=== PATIENT | female | born 1935 | race Caucasian/White ===

== ENCOUNTER → 2018-09-11 | Outpatient (REF) | payer MEDICARE, OTHER ==
[2018-09-11 14:39] LABS: CREATININE, URINE 87.3 MG/DL; CREATININE,RANDOM URINE 87.3 MG/DL; MALB URINE SIEMENS 44.5 MG/L; MAU/CREAT RATIO 50.9 MCG/MG (0.0-30.0)
== END ==
LOC: M LAB REF 12:36
PROVIDERS: ATTEND Internal Medicine
DX: E11.9 Type 2 diabetes mellitus without complications (principal)

== ENCOUNTER 2022-03-30 21:11 | Inpatient (IN) | payer MEDICARE, OTHER ==
[~2022-03-30] VITALS: Ht 157.5 cm; Wt 75.6 kg
[2022-03-30] MEDS ORDERED: SPIR-10 PO (21:28)
[2022-03-30] MEDS ORDERED: FOSI40TA59 PO (21:28)
[2022-03-30] MEDS ORDERED: HUMA100I3 SC (21:28)
[2022-03-30] MEDS ORDERED: ATEN100T PO (21:28)
[2022-03-30] MEDS ORDERED: INSU100I48 SC ×2 (21:28)
[2022-03-30] MEDS ORDERED: LIPI20TA PO (21:28)
[2022-03-30] MEDS ORDERED: ISOVUE-370 76% 100ML VIAL As Ordered ONE (22:28)
[2022-03-30 22:51] LABS: BASO # 0.1 10^3/uL (0.0-0.2); BASO % 0.8 % (0.0-1.0); EOS # 0.5 10^3/uL (0.0-0.5); EOS % 4.5 % (0.0-3.0); HEMATOCRIT 35.7 % (36.0-47.0); HEMOGLOBIN 11.5 g/dl (12.0-15.5); LYMPH # 3.2 10^3/uL (1.5-5.0); LYMPH % 27.7 % (24.0-44.0); MEAN CORPUSCULAR HEMOGLOBIN 28.9 pg (27.0-33.0); MEAN CORPUSCULAR HGB CONC 32.2 g/dl (32.0-36.5); MEAN CORPUSCULAR VOLUME 89.7 fl (80.0-96.0); MONO # 0.8 10^3/uL (0.0-0.8); MONO % 6.7 % (2.0-8.0); NEUTROPHILS % 59.9 % (36.0-66.0); PLATELET COUNT, AUTOMATED 311 10^3/uL (150-450); RED BLOOD COUNT 3.98 10^6/uL (4.00-5.40); WHITE BLOOD COUNT 11.7 10^3/uL (4.0-10.0)
[2022-03-30 23:09] LABS: RSV AMPLIFICATION NEGATIVE (NEGATIVE)
[2022-03-30 23:10] LABS: BLOOD UREA NITROGEN 17 MG/DL (9-23); CALCIUM LEVEL 8.8 MG/DL (8.3-10.6); CARBON DIOXIDE LEVEL 23 MMOL/L (20-31); CHLORIDE LEVEL 106 MMOL/L (98-107); CK-MB VALUE MASS < 1.0 NG/ML (<3.6); CREATININE FOR GFR 0.84 MG/DL (0.55-1.30); GLOMERULAR FILTRATION RATE > 60.0 (>32); GLUCOSE, FASTING 175 MG/DL (74-106); POTASSIUM SERUM 4.2 MMOL/L (3.5-5.1); SODIUM LEVEL 138 MMOL/L (136-145)
[2022-03-30 23:14] LABS: CPK CREATINE PHOSPHOKINASE 66 U/L (34-145); MB/CK RELATIVE INDEX 1.51 (< OR =4)
[2022-03-31] MEDS ORDERED: FOSI40TA59 PO (00:46)
[2022-03-31] MEDS ORDERED: ZINC50TA26 PO (00:46)
[2022-03-31] MEDS ORDERED: SPIR-10 PO (00:46)
[2022-03-31] MEDS ORDERED: BAYE325T13 PO (00:46)
[2022-03-31] MEDS ORDERED: ATEN50TA2 PO (00:46)
[2022-03-31] MEDS ORDERED: VITA200032 PO (00:46)
[2022-03-31] MEDS ORDERED: ATOR1TAB21 PO (00:46)
[2022-03-31] MEDS ORDERED: HOME MED LIST COMPLETE! XX SCH (00:50)
[2022-03-31] MEDS ORDERED: DEXTROSE 50% 50ML SYRINGE IV PRN (01:35)
[2022-03-31] MEDS ORDERED: GLUCOSE 4GM CHEW TABLET PO PRN (01:35)
[2022-03-31] MEDS ORDERED: GLUCAGON INJ 1MG VIAL SC PRN (01:35)
[2022-03-31] MEDS ORDERED: ACETAMINOPHEN TAB 650MG DOSE (2X325MG) PO PRN (01:35)
[2022-03-31] MEDS: CLOPIDOGREL 75 MG TAB PO SCH (02:58)
[2022-03-31 03:05] VITALS: BP 145/75
[2022-03-31] MEDS ORDERED: NS 1,000 ML IV SCH (03:10)
[2022-03-31 04:23] VITALS: BP 147/62
[2022-03-31 06:48] LABS: BASO # 0.1 10^3/uL (0.0-0.2); BASO % 0.9 % (0.0-1.0); EOS # 0.4 10^3/uL (0.0-0.5); EOS % 3.8 % (0.0-3.0); HEMATOCRIT 35.3 % (36.0-47.0); HEMOGLOBIN 11.3 g/dl (12.0-15.5); LYMPH # 3.1 10^3/uL (1.5-5.0); LYMPH % 27.5 % (24.0-44.0); MEAN CORPUSCULAR HEMOGLOBIN 28.7 pg (27.0-33.0); MEAN CORPUSCULAR VOLUME 89.6 fl (80.0-96.0); MONO # 0.7 10^3/uL (0.0-0.8); MONO % 6.5 % (2.0-8.0); NEUTROPHILS # 6.9 10^3/uL (1.5-8.5); NEUTROPHILS % 60.9 % (36.0-66.0); PLATELET COUNT, AUTOMATED 284 10^3/uL (150-450); RED BLOOD COUNT 3.94 10^6/uL (4.00-5.40); WHITE BLOOD COUNT 11.3 10^3/uL (4.0-10.0)
[2022-03-31 07:20] LABS: PERCENT SATURATION 22.7 % (13.2-45.0)
[2022-03-31 07:21] LABS: VITAMIN B12 LEVEL 247 PG/ML (211-911)
[2022-03-31 07:22] LABS: FERRITIN 120.7 NG/ML (7.3-270.7)
[2022-03-31 07:25] LABS: ALBUMIN 3.2 G/DL (3.2-5.2); ALKALINE PHOSPHATASE 80 U/L (46-116); ALT/SGPT 24 U/L (7.0-40); AST/SGOT 20 U/L (<34); BILIRUBIN,TOTAL 0.4 MG/DL (0.3-1.2); BLOOD UREA NITROGEN 14 MG/DL (9-23); CALCIUM LEVEL 8.8 MG/DL (8.3-10.6); CARBON DIOXIDE LEVEL 25 MMOL/L (20-31); CHLORIDE LEVEL 106 MMOL/L (98-107); CHOLESTEROL LEVEL 112 MG/DL (<200); CHOLESTEROL RISK RATIO 2.59 (<5); CREATININE FOR GFR 0.85 MG/DL (0.55-1.30); GLOMERULAR FILTRATION RATE > 60.0 (>32); GLUCOSE, FASTING 140 MG/DL (74-106); HDL CHOLESTEROL 43.1 MG/DL (>40); LDL CHOLESTEROL 53.3 MG/DL (<100); NON-HDL-C 69 MG/DL; POTASSIUM SERUM 3.8 MMOL/L (3.5-5.1); SODIUM LEVEL 140 MMOL/L (136-145); TOTAL PROTEIN 5.8 G/DL (5.7-8.2); TRIGLYCERIDES LEVEL 78 MG/DL (<150)
[2022-03-31 07:37] VITALS: BP 133/62
[2022-03-31] MEDS: INSULIN LISPRO (NovoLOG) PER UNIT SC SCH ×3 (08:41→17:37)
[2022-03-31] MEDS: FOSINOPRIL 10MG TABLET PO SCH (08:42)
[2022-03-31] MEDS: SPIRONOLACTONE 25 MG TAB PO SCH (08:42)
[2022-03-31] MEDS: LEVEMIR (INSULIN DETEMIR) 1 UNITS/0.01ML SC SCH (08:42)
[2022-03-31] MEDS: atenoloL 50 MG TAB PO SCH ×2 (08:43→21:21)
[2022-03-31] MEDS: ENOXAPARIN 40MG/0.4ML SYRINGE (J1650 PER 10MG) SC SCH (08:44)
[2022-03-31 08:56] LABS: HEMOGLOBIN A1c 6.4 % (4.0-6.0)
[2022-03-31 10:07] LABS: MAGNESIUM LEVEL 1.6 MG/DL (1.8-2.4)
[2022-03-31] MEDS: cefTRIAXone SOD 1 GM in D5W MINI-BAG PLUS 50 ML IV SCH (11:47)
[2022-03-31] MEDS ORDERED: MAG SULF 1GM/100ML (MAG RUN) 1 GM in IV 1 EA IV ONE (12:00)
[2022-03-31 15:56] VITALS: BP 126/60
[2022-03-31] MEDS ORDERED: INSULIN LISPRO (NovoLOG) PER UNIT SC SCH (21:00)
[2022-03-31] MEDS ORDERED: LEVEMIR (INSULIN DETEMIR) 1 UNITS/0.01ML SC SCH (21:00)
[2022-03-31] MEDS ORDERED: ATORVASTATIN 20 MG TAB PO SCH (21:00)
[2022-04-01 00:23] VITALS: BP 133/62
[2022-04-01 04:22] VITALS: BP 118/57
[2022-04-01] MEDS ORDERED: CEFD300C41 PO (07:27)
[2022-04-01] MEDS ORDERED: PROBCAP14 PO (07:27)
[2022-04-01] MEDS ORDERED: CLOP75TA2 PO (07:27)
[2022-04-01 07:42] VITALS: BP 130/56
[2022-04-01] MEDS: SPIRONOLACTONE 25 MG TAB PO SCH (08:49)
[2022-04-01] MEDS: CLOPIDOGREL 75 MG TAB PO SCH (08:49)
[2022-04-01 08:50] VITALS: BP 130/56
[2022-04-01] MEDS: ENOXAPARIN 40MG/0.4ML SYRINGE (J1650 PER 10MG) SC SCH (08:50)
[2022-04-01] MEDS: INSULIN LISPRO (NovoLOG) PER UNIT SC SCH ×2 (08:50→12:35)
[2022-04-01] MEDS: FOSINOPRIL 10MG TABLET PO SCH (08:50)
[2022-04-01] MEDS: LEVEMIR (INSULIN DETEMIR) 1 UNITS/0.01ML SC SCH (08:50)
[2022-04-01] MEDS: atenoloL 50 MG TAB PO SCH (08:50)
[2022-04-01] MEDS: cefTRIAXone SOD 1 GM in D5W MINI-BAG PLUS 50 ML IV SCH (11:00)
[2022-04-01] MEDS ORDERED: HUMA100I3 SC (13:20)
== END 2022-04-01 14:17 | disposition home or self-care (01) | DRG 67 ==
LOC: M ED 21:11 → M ED INP 03-31 01:31 → ENRESERV 03-31 01:48 → M PCU 03-31 03:15
PROVIDERS: ADMIT Family Medicine; ATTEND Family Medicine
PROC: B246ZZZ Ultrasonography of Right and Left Heart (ICD-10-PCS; principal; 2022-04-01)
DX: I65.21 Occlusion and stenosis of right carotid artery (principal); U07.1 COVID-19; N39.0 Urinary tract infection, site not specified; B96.20 Unspecified Escherichia coli [E. coli] as the cause of diseases classified elsewhere; I11.0 Hypertensive heart disease with heart failure; E78.5 Hyperlipidemia, unspecified; E11.9 Type 2 diabetes mellitus without complications; I50.9 Heart failure, unspecified; I44.7 Left bundle-branch block, unspecified; D64.9 Anemia, unspecified; Z79.82 Long term (current) use of aspirin; Z79.4 Long term (current) use of insulin; Z79.899 Other long term (current) drug therapy; Z90.49 Acquired absence of other specified parts of digestive tract; Z98.49 Cataract extraction status, unspecified eye; Z87.891 Personal history of nicotine dependence; E83.42 Hypomagnesemia; I25.10 Atherosclerotic heart disease of native coronary artery without angina pectoris

== ENCOUNTER → 2022-05-02 | Outpatient (CLI) | payer MEDICARE, OTHER ==
[~2022-05-02] MED LIST: ATEN100T PO; ATEN50TA2 PO; ATOR1TAB21 PO; BAYE325T13 PO; CEFD300C41 PO; CLOP75TA2 PO; FOSI40TA59 PO; HUMA100I3 SC; INSU100I48 SC; LIPI20TA PO; PROBCAP14 PO; SPIR-10 PO; VITA200032 PO; ZINC50TA26 PO
[2022-05-02 14:03] LABS: CREATININE FOR GFR 0.98 MG/DL (0.55-1.30); GLOMERULAR FILTRATION RATE 57.4 (>32)
== END ==
LOC: M WUC 10:27
PROVIDERS: ATTEND Physician Assistant
DX: I65.23 Occlusion and stenosis of bilateral carotid arteries (principal)

== ENCOUNTER → 2022-05-16 | Outpatient (CLI) | payer MEDICARE, OTHER ==
[~2022-05-16] MED LIST changes: +PROHANCE 279.3MG/ML 15ML VIAL As Ordered ONE
== END ==
LOC: M RAD 08:45
PROVIDERS: ATTEND Physician Assistant
DX: I65.29 Occlusion and stenosis of unspecified carotid artery (principal); R42 Dizziness and giddiness
CPT/HCPCS: 70549; A9576

== ENCOUNTER → 2023-01-31 | Outpatient (REF) | payer MEDICARE, OTHER ==
[~2023-01-31] MED LIST changes: -CEFD300C41 PO; +CEFD300C42 PO; -PROHANCE 279.3MG/ML 15ML VIAL As Ordered ONE
== END ==
LOC: M LAB REF 16:35
PROVIDERS: ATTEND Internal Medicine
DX: N18.31 Chronic kidney disease, stage 3a (principal); R35.0 Frequency of micturition

== ENCOUNTER → 2023-06-05 | Outpatient (CLI) | payer MEDICARE, OTHER ==
[~2023-06-05] MED LIST changes: +CEFD1CAP9 PO; -CEFD300C42 PO
== END ==
LOC: M RAD 10:00
PROVIDERS: ATTEND Surgery Vascular Surgery
DX: I65.21 Occlusion and stenosis of right carotid artery (principal)

== ENCOUNTER → 2024-06-05 | Outpatient (CLI) | payer MEDICARE, OTHER | LOC: M WHC 10:08 | PROVIDERS: ATTEND Physician Assistant | DX: I65.21 Occlusion and stenosis of right carotid artery (principal) ==

== ENCOUNTER → 2024-12-02 | Outpatient (REF) | payer MEDICARE, OTHER ==
[2024-12-02 18:23] LABS: PHOSPHORUS LEVEL 4.3 MG/DL (2.4-5.1); PTH INTACT 54.9 PG/ML (18.5-88.0)
== END ==
LOC: M LAB REF 17:13
PROVIDERS: ATTEND Internal Medicine
DX: N18.31 Chronic kidney disease, stage 3a (principal)

== ENCOUNTER 2024-12-21 13:11 | Emergency (ER) | payer MEDICARE, OTHER ==
[~2024-12-21] VITALS: Ht 157.5 cm; Wt 66.5 kg
[2024-12-21 13:56] LABS: BASO # 0.1 10^3/uL (0.0-0.2); BASO % 0.6 % (0.0-1.0); EOS # 0.2 10^3/uL (0.0-0.5); EOS % 1.2 % (0.0-3.0); LYMPH # 2.7 10^3/uL (1.5-5.0); LYMPH % 17.5 % (24.0-44.0); MONO # 0.9 10^3/uL (0.0-0.8); MONO % 5.8 % (2.0-8.0); NEUTROPHILS # 11.6 10^3/uL (1.5-8.5); NEUTROPHILS % 74.7 % (36.0-66.0); PLATELET COUNT, AUTOMATED 365 10^3/uL (150-450)
[2024-12-21 14:23] LABS: ETHYL ALCOHOL (ETHANOL) < 0.003 % (0.000-0.010)
[2024-12-21 14:24] LABS: ALT/SGPT 20 U/L (7.0-40); AST/SGOT 19 U/L (<34); CALCIUM LEVEL 9.6 MG/DL (8.3-10.6); CARBON DIOXIDE LEVEL 23 MMOL/L (20-31); CHLORIDE LEVEL 107 MMOL/L (98-107); CK-MB VALUE MASS 2.5 NG/ML (<3.6); CPK CREATINE PHOSPHOKINASE 64 U/L (34-145); CREATININE FOR GFR 1.01 MG/DL (0.55-1.30); GLOMERULAR FILTRATION RATE 53.5 (>32); MB/CK RELATIVE INDEX 3.90 (< OR =4); POTASSIUM SERUM 4.1 MMOL/L (3.5-5.1); SODIUM LEVEL 143 MMOL/L (136-145)
[2024-12-21 14:31] LABS: KETONE, URINE AUTO RFX NEGATIVE (NEGATIVE); LEUKOCYTE ESTERASE UR AUTO RFX 3+ (NEGATIVE); MUCUS, URINE RFX SMALL (NEGATIVE); NITRITE, URINE AUTO RFX POSITIVE (NEGATIVE); RBC, URINE AUTO RFX 19 /HPF (0-3); SQUAM EPITHELIAL CELL UR AURFX 0 /HPF (0-6); WBC, URINE AUTO RFX TNTC /HPF (0-3)
[2024-12-21] MEDS: cefTRIAXone SOD 1 GM in DEXTROSE 5% (D5W) ADV/MINI-BAG 50 ML IV ONE (15:23)
[2024-12-21 15:41] LABS: CK-MB VALUE MASS 2.2 NG/ML (<3.6)
[2024-12-21 15:42] LABS: CPK CREATINE PHOSPHOKINASE 62.0 U/L (34-145); MB/CK RELATIVE INDEX 3.54 (< OR =4)
[2024-12-21] MEDS ORDERED: INSUHUMDS SUBQ (15:52)
[2024-12-21] MEDS ORDERED: JARD1TAB PO (15:52)
[2024-12-21] MEDS ORDERED: CLOP75TA2 PO (15:52)
[2024-12-21] MEDS ORDERED: TRES100I SUBQ (15:52)
[2024-12-21] MEDS ORDERED: HOME MED LIST COMPLETE! XX SCH (15:55)
[2024-12-21] MEDS ORDERED: CEFD300C PO (17:43)
[2024-12-21 17:56] VITALS: BP 122/57; TEMP 97.7; O2SAT 98
== END 2024-12-21 18:09 | disposition home or self-care (01) ==
LOC: M ED 13:11
DX: R41.82 Altered mental status, unspecified (principal); N39.0 Urinary tract infection, site not specified; R79.89 Other specified abnormal findings of blood chemistry; I49.1 Atrial premature depolarization; I45.81 Long QT syndrome; I44.7 Left bundle-branch block, unspecified; E11.9 Type 2 diabetes mellitus without complications; I10 Essential (primary) hypertension; E78.5 Hyperlipidemia, unspecified; Z86.79 Personal history of other diseases of the circulatory system; Z79.02 Long term (current) use of antithrombotics/antiplatelets; Z79.2 Long term (current) use of antibiotics; Z79.899 Other long term (current) drug therapy; Z79.4 Long term (current) use of insulin
CPT/HCPCS: 51701; 70450; 71046; 80048; 80076; 81001; 82077; 82140; 82550; 82553; 84443; 84484; 85025; 87040; 87088; 87186; 93005; 93041; 94760; 96365; 99285; J0696